=== PATIENT | male | born 1985 | race African-American/Black ===

== ENCOUNTER 2021-04-20 13:19 | Emergency (ER) | payer BC ==
[~2021-04-20] VITALS: Ht 188 cm; Wt 108.9 kg
[2021-04-20 13:45] LABS: URINE BILIRUBIN NEGATIVE (Negative); URINE BLOOD NEGATIVE (Negative); URINE CLARITY CLEAR; URINE COLOR YELLOW; URINE GLUCOSE-RANDOM* NEGATIVE (Negative); URINE KETONES NEGATIVE (Negative); URINE LEUKOCYTES-REFLEX NEGATIVE (Negative); URINE NITRITE-REFLEX NEGATIVE (Negative); URINE PROTEIN (DIPSTICK) NEGATIVE (Negative); URINE SPECIFIC GRAVITY >= 1.030 (1.005-1.035); URINE UROBILINOGEN 0.2 E.U./dl (0.2-1.0)
[2021-04-20 15:26] VITALS: BP 91/71
[2021-04-20] MEDS ORDERED: FLEXERIL PO (15:28)
[2021-04-20] MEDS ORDERED: IBUPROFEN 800800 MG PO (15:28)
== END 2021-04-20 15:26 | disposition home or self-care (01) ==
LOC: ER 13:19
PROVIDERS: Student in an Organized Health Care Education/Training Program
DX: M62.830 Muscle spasm of back (principal); M54.9 Dorsalgia, unspecified

== ENCOUNTER 2021-06-21 12:24 | Emergency (ER) | payer BC ==
[~2021-06-21 12:24] MED LIST: FLEXERIL PO; IBUPROFEN 800800 MG PO
== END 2021-06-21 12:48 | disposition left against medical advice (07) ==
LOC: ER 12:24
DX: J02.9 Acute pharyngitis, unspecified (principal); Z53.21 Procedure and treatment not carried out due to patient leaving prior to being seen by health care provider